=== PATIENT | female | born 1955 | race Caucasian/White ===

== ENCOUNTER 2017-04-01 20:48 | Inpatient (IN) | payer MEDICARE, OTHER ==
[~2017-04-01] VITALS: Ht 165.1 cm; Wt 76.2 kg
--- NOTE | 2017-04-01 23:10 | NUR ---
GPS RN ADMITTING NOTES: ADMITTED A 61 YO FEMALE TO THE GPS UNIT. PATIENT WAS BROUGHT IN VIA GURNEY BY AMBULANCE FROM [facility], WHERE SHE WAS FIRST BROUGHT BY HER DAUGHTER FOR INCREASING AGITATION AND PSYCHOSIS. PER 5150 HOLD, PATIENT HAS BEEN DIAGNOSES WITH SCHIZOPHRENIA, AND THAT SHE HAS BEEN HAVING FIXED DELUSIONS OF AND HAVING CONSTIPATION AND LARGE AMOUNTS OF STOOL AND FOOD COMING OUT OF HER, TO THE POINT WHERE, PER DAUGHTER, SHE WOULD REFUSE TO EAT BECAUSE OF CONSTIPATION. PATIENT IS AOX1, CONFUSED WITH DISORGANIZED THOUGHT AND FLIGHT OF IDEAS. BREATHING EVEN AND UNLABORED. AMBULATORY, STEADY GAIT. APPEARS UNKEMPT. PATIENT ADMITTED UNDER THE CARE OF DR LEONARD (PSYCH) AND DR BENNY LEONE (MEDICAL). BELONGINGS CHECKED, NO CONTRABAND NOTED. SKIN AND BODY ASSESSMENT DONE. SHOWER OFFERED BY CO FOUNDER & CEO. PROVIDED FOR COMFORT AND SAFETY. BED IN LOWEST AND LOCKED POSITION, SIDERAILS UP X3. WILL MONITOR Q 15 MINS FOR BEHAVIOR.
[2017-04-01] MEDS ORDERED: ACETAMINOPHEN 325 MG TABLET PO PRN (23:30)
[2017-04-01] MEDS ORDERED: MAGNESIUM HYDROXIDE 30 ML UDC PO PRN (23:30)
[2017-04-01] MEDS ORDERED: MAG HYDROX/AL HYDROX/SIMETH 30 ML UDC PO PRN (23:30)
[2017-04-01 23:57] VITALS: BP 158/85
[2017-04-02] MEDS ORDERED: HALO5TAB PO (00:19)
[2017-04-02] MEDS ORDERED: DIVA500T2 PO (00:19)
[2017-04-02] MEDS ORDERED: ASPI-605 PO (00:19)
[2017-04-02] MEDS ORDERED: HALO10TA13 PO (00:19)
[2017-04-02] MEDS ORDERED: ALEN70TA3 PO (00:19)
[2017-04-02] MEDS ORDERED: HALO50VI4 IM (00:19)
[2017-04-02] MEDS ORDERED: TRAZ-147 PO (00:19)
[2017-04-02] MEDS ORDERED: TEMAZEPAM 7.5 MG CAPSULE ONE (01:16)
--- NOTE | 2017-04-02 01:20 | NUR ---
RN NOTES: PATIENT KEPT WALKING DOWN THE HALLWAYS, STATING THAT SHE HAS JUST "HAD A BABY", AND INSISTS THAT IT WAS TAKEN AWAY BY THE DOCTORS AND NURSES. PATIENT APPEARS RESTLESS AND AGITATED. REDIRECTED TO ROOM AND PRN TEMAZEPAM PO ADMINISTERED. FOR CLOSE MONITORING.
[2017-04-02] MEDS: TEMAZEPAM 7.5 MG CAPSULE PO PRN (01:21)
[2017-04-02] MEDS ORDERED: Z GUARD REMEDY 2 OZ OINT TP PRN (06:30)
--- NOTE | 2017-04-02 06:37 | NUR ---
RN NOTES: PATIENT CRYING AND YELLING, IN KEVIN CHAIR, APPEARS CONFUSED, SAYING "TAKE ME BACK TO MY ROOM, I WANT TO SEE MY BABY!". TRIED TO CALM PATIENT AND REORIENTED TO REALITY. PATIENT STILL CRYING.
--- NOTE | 2017-04-02 07:02 | NUR ---
RN NOTES: PATIENT LED BACK TO ROOM NOW. APPEARS MORE CALM, BUT STILL ASKING FOR HER "BABY". WILL CONT TO MONITOR.
[2017-04-02] MEDS ORDERED: clonazePAM 0.5 MG TABLET ONE (07:05)
[2017-04-02 07:09] LABS: BILIRUBIN,TOTAL 0.5 mg/dL (0.2-1.0); CREATININE 0.6 mg/dL (0.6-1.3); POTASSIUM 4.2 mmol/L (3.5-5.1); TOTAL PROTEIN, SERUM 7.8 g/dL (6.4-8.2)
[2017-04-02] MEDS: clonazePAM 0.5 MG TABLET PO PRN ×3 (07:10→15:57)
--- NOTE | 2017-04-02 07:13 | NUR ---
RN NOTES: PATIENT'S BEHAVIOR ESCALATED, AND SHE WAS YELLING AT THE TOP OF HER VOICE FOR HER BABY, AND WAS VERY DISRUPTIVE. KLONOPIN 0.5 MG PO GIVEN. PATIENT PLACED IN GERICHAIR, ACCOMPANIED BY DAMIR. WILL CONT TO MONITOR.
[2017-04-02 08:48] VITALS: BP 154/86
[2017-04-02] MEDS ORDERED: ALEN35TA5 PO (14:02)
[2017-04-02 16:00] VITALS: BP 129/65
--- NOTE | 2017-04-02 16:31 | NUR ---
PATIENT HAS BEEN AGITATED ALL SHIFT AND SHE HAS RECEIVED KLONOPIN TWICE WITH L[facility]LE [facility] SHE THINKS SHE HAS A BABY AND THEY WONT GIVE IT TO HER CRYING AND PACING UNIT NEEDING RE DIRECTION TO REALITY. STAFF MADE HER A DOLL OUT OF LINEN AND SHE REC D KLONOPIN 0.5MG AND PLACED IN ROOM TO DE ESCALATE
[2017-04-02 20:31] VITALS: BP 153/90
[2017-04-02] MEDS: TRAZODONE 50 MG TABLET PO PRN (22:08)
[2017-04-02] MEDS: DIVALPROEX SODIUM 500 MG TABLET.DR PO SCH (22:08)
[2017-04-02] MEDS: HALOPERIDOL 5 MG TABLET PO SCH (22:09)
[2017-04-03 08:00] VITALS: BP 106/64
[2017-04-03] MEDS: HALOPERIDOL 5 MG TABLET PO SCH ×2 (09:06→21:19)
[2017-04-03] MEDS: clonazePAM 0.5 MG TABLET PO PRN (15:55)
--- NOTE | 2017-04-03 15:58 | NUR ---
Initial Discharge Note: Patient lives at home with her daughter [id number] [facility] [address] [place] [address] ([phone]). family service caseworker spoke to patient's daughter Christa Sharif ([phone]) who stated that she wanted her mother to return home upon discharge and would pick her up when she is ready. family service caseworker attempted to contact patient's brother Phan Sharif / . However, he was unavailable social services manager left him a voicemail with her contact information. family service caseworker will help form a safe and proper discharge. family service caseworker will provide referrals for smoking cessation.
--- NOTE | 2017-04-03 15:59 | NUR ---
Psychosocial assessment was reviewed and I concur with the information given. No changes are necessary. Ginette Rivas, [facility] [id number] Addendum: 04/03/17 at 1559 by GINETTE RIVAS SW Amended: Links added.
[2017-04-03 16:00] VITALS: BP 142/97
[2017-04-03] MEDS: DIVALPROEX SODIUM 500 MG TABLET.DR PO SCH (21:18)
[2017-04-03 22:31] VITALS: BP 129/75
[2017-04-03] MEDS: TEMAZEPAM 7.5 MG CAPSULE PO PRN (22:54)
[2017-04-04] MEDS: clonazePAM 0.5 MG TABLET PO PRN ×4 (02:54→18:01)
--- NOTE | 2017-04-04 02:55 | NUR ---
KLONOPIN 0.5 MG PO PRN GIVEN FO ANXIETY PER PT. REQUEST
[2017-04-04 08:32] VITALS: BP 140/80
[2017-04-04] MEDS: HALOPERIDOL 5 MG TABLET PO SCH ×2 (08:35→21:05)
--- NOTE | 2017-04-04 08:36 | NUR ---
administered klonopin 0.5 mg po prn for anxiety, paranoia, irritable, yelling, screaming. v/s taken bp-140/80, p-90, continued monitoring.
--- NOTE | 2017-04-04 12:40 | NUR ---
PATIENT VERY ANXIOUS, YELLING, PARANOID, DELUSIONAL, UNKEMPT, AWOL RISK, AGGRESSIVE, RESPOND INTERNAL STIMULI, DISORGANIZED THOUGHTS, JUMPING FROM ONE TOPIC TO ANOTHER. ADMINISTERED KLONOPIN 0.5 MG PO PRN Q 4 HR PRESCRIBED BY . V/S TAKEN BP-142/81, P-92, CONTINUED MONITORING.
[2017-04-04 16:00] VITALS: BP 130/70
[2017-04-04 16:37] VITALS: BP 130/70
--- NOTE | 2017-04-04 18:01 | NUR ---
administered klonopin 0.5 mg po prn for paranoia, delusional, aggressive, yelling, vs take, bp -130/88, p-90, continued monitoring.
[2017-04-04 20:00] VITALS: BP 150/98
[2017-04-04] MEDS: DIVALPROEX SODIUM 500 MG TABLET.DR PO SCH (21:05)
[2017-04-05] MEDS: TEMAZEPAM 7.5 MG CAPSULE PO PRN (01:32)
[2017-04-05] MEDS: clonazePAM 0.5 MG TABLET PO PRN ×3 (02:11→20:10)
[2017-04-05] MEDS: HALOPERIDOL 5 MG TABLET PO SCH ×2 (08:42→21:37)
--- NOTE | 2017-04-05 08:42 | NUR ---
GPS/RN KLONOPIN 0.5MG PO GIVEN FOR ANXIETY
[2017-04-05 16:01] VITALS: BP 124/61
--- NOTE | 2017-04-05 19:30 | NUR ---
GPS RN NOTE, RECEIVED PATIENT AWAKE AND IN BED, NO S/S OR COMPLAINTS OF PAIN AT THIS TIME. PATIENT IS DISPLAYING NO S/S OF APPARENT DISTRESS AT THIS TIME. PATIENT BREATHING IS UNLABORED WITH EQUAL RISE AND FALL OF THE CHEST. PATIENT IS ALERT AND ORIENTED X 1-2 ON ROOM AIR WITH A SPO2 98%. PATIENT SELECTIVE WITH MEDICATION, DEPRESSED, UNCOOPERATIVE, , CONFUSED AT TIMES, WONDERS, YELLING THAT HER BABY IS DOWN THE TOILET AND NEEDS REORIENTATION. PATIENT DENIES SUICIDE AND HOMICIDAL IDEATIONS AT THIS TIME. PATIENT ASSISTED WITH TURNING AND REPOSITIONING Q2HR AND PRN FOR COMFORT AND CIRCULATION. PATIENT HAS NO NEEDS AT THIS TIME. PATIENT EDUCATED ON THE USE OF THE CALL TAI. PATIENT BED SIDE RAILS UP X2 FOR SAFETY, BED IS LOCKED AND LOW WILL CONTINUE TO MONITOR AND MAINTAIN SAFETY.
[2017-04-05 20:00] VITALS: BP 145/75
--- NOTE | 2017-04-05 20:10 | NUR ---
GPS RN NOTE, PATIENT IS ANXIOUS EVIDENCED BY HE WONDER YELLING, " YOU KILLED MY BABY BY FLUSHING IT DOWN THE TOILET ". PATIENT VITAL SIGNS ARE STABLE. GAVE KLONOPIN 0.5MG PO Q4HR PRN ORDERED. WILL REASSESS FOR ANXIETY AND I WILL CONTINUE TO MONITOR THIS PATIENT.
--- NOTE | 2017-04-05 20:52 | NUR ---
GPS RN NOTE, PATIENT YELLING, " YOU KILLED MY BABY BY FLUSHING DOWN THE TOILET SO I'M GOING TO KILL YOU ". PATIENT IS POSING BEHAVIOR THAT IS DANGEROUS TO OTHERS, DELUSIONAL, AGITATED, AGGRESSIVE, AND IS THREATENING PHYSICAL TO OTHERS. OFFERED ORAL MEDICATION, TRIED TO REDIRECT THIS PATIENT, AND I TRIED OFFER FOOD AND WATER TO THIS PATIENT WITH NO POSITIVE EFFECT. PAGED DR LEONARD AND INFORMED HIM OF MY FINDINGS. DR LEONARD ORDERED ZYPREXA 5MG IM ONCE, AND ATIVAN 1MG IM ONCE. ALL ORDERS NOTED AND CARRIED OUT WILL CONTINUE TO MONITOR THIS PATIENT.
[2017-04-05] MEDS ORDERED: LORAZEPAM INJ 2 MG/ML VIAL IM ONE (21:00)
[2017-04-05] MEDS ORDERED: OLANZAPINE 10 MG VIAL IM ONE (21:00)
[2017-04-05] MEDS: DIVALPROEX SODIUM 500 MG TABLET.DR PO SCH (21:36)
--- NOTE | 2017-04-05 21:36 | NUR ---
GPS RN NOTE, PATIENT IS TO AND SEDATED TO TAKE DEPAKOTE 1000MG PO HS AND HALDOL 10MG PO HS ORDERED. DR LEONARD AWARE. WILL CONTINUE TO MONITOR THIS PATIENT.
[2017-04-06 08:00] VITALS: BP 115/80
[2017-04-06] MEDS: HALOPERIDOL 5 MG TABLET PO SCH ×2 (08:58→22:14)
[2017-04-06 15:47] VITALS: BP 121/71
--- NOTE | 2017-04-06 19:30 | NUR ---
GPS/RESIDENTIAL LIVING ASSISTANT; RECEIVED PT WALKING IN THE HALLWAY CARRYING HER DOLL. PT QUIET BUT NO AGITATION NOTED. WILL CONTINUE TO MONITOR.
[2017-04-06 20:00] VITALS: BP 119/90
--- NOTE | 2017-04-06 22:00 | NUR ---
GPS/PLANTING MACHINE CREWMAN; PT TOOK ONLY 1 TAB. OF DEPAKOTE 500 MG INSTEAD OF 2 TO MAKE IT 1000MG. SHE REFUSED THE OTHER 500 MG.
[2017-04-06] MEDS: DIVALPROEX SODIUM 500 MG TABLET.DR PO SCH (22:13)
--- NOTE | 2017-04-07 07:00 | NUR ---
SLEPT FOR SHORT HOURS. CONFUSED. WILL ENDORSE TO THE DAY SHIFT NURSE.
[2017-04-07 08:00] VITALS: BP 149/98
[2017-04-07] MEDS: HALOPERIDOL 5 MG TABLET PO SCH ×2 (08:31→22:01)
[2017-04-07] MEDS: clonazePAM 0.5 MG TABLET PO PRN (11:19)
--- NOTE | 2017-04-07 11:21 | NUR ---
PURCHASING ADMINISTRATOR-NOTES NOTED PATIENT CRYING,DELUSIONAL AND PACING IN AND OUT HER ROOM. REDIRECTED AND OFFERED KLONOPIN AND AGREES. KLONOPIN 0.5MG P.O GIVEN PRN ORDER. WILL CONT. MONITORING FOR SAFETY AND BEHAVIOR.
[2017-04-07 16:00] VITALS: BP 124/79
[2017-04-07 20:31] VITALS: BP 149/90
[2017-04-07] MEDS: DIVALPROEX SODIUM 500 MG TABLET.DR PO SCH (22:00)
[2017-04-07] MEDS: TRAZODONE 50 MG TABLET PO PRN (23:42)
[2017-04-08] MEDS: clonazePAM 0.5 MG TABLET PO PRN (06:33)
--- NOTE | 2017-04-08 06:33 | NUR ---
GPS RN: PATIENT IN THE HALLWAY, TALKING TO SELF, DELUSIONAL, STATES "I AM JARRETT" GO AWAY!". PATIENT THEN REDIRECTED BACK TO THE ROOM. KLONOPIN 0.5 MG GIVEN PRN. WILL MONITOR PATIENT'S MOOD AND BEHAVIOR.
[2017-04-08 08:00] VITALS: BP 126/58
[2017-04-08] MEDS: HALOPERIDOL 5 MG TABLET PO SCH ×2 (08:20→21:51)
[2017-04-08 16:00] VITALS: BP 133/74
[2017-04-08 20:59] VITALS: BP 137/81
[2017-04-08] MEDS ORDERED: DIVALPROEX SODIUM 500 MG TABLET.DR PO SCH (22:00)
[2017-04-09 08:00] VITALS: BP 114/75
[2017-04-09] MEDS: HALOPERIDOL 5 MG TABLET PO SCH ×2 (08:25→21:05)
[2017-04-09 16:00] VITALS: BP 109/53
[2017-04-09 20:00] VITALS: BP_SYST 103; BP_SYST 138; BP_DIAS 79
[2017-04-09] MEDS: DIVALPROEX SODIUM 250 MG TABLET.DR PO SCH (21:05)
[2017-04-10 08:00] VITALS: BP 106/72
[2017-04-10] MEDS: HALOPERIDOL 5 MG TABLET PO SCH ×2 (08:03→21:29)
[2017-04-10 16:17] VITALS: BP 133/90
[2017-04-10 20:00] VITALS: BP 134/65
[2017-04-10] MEDS: DIVALPROEX SODIUM 250 MG TABLET.DR PO SCH (21:29)
[2017-04-10] MEDS: TRAZODONE 50 MG TABLET PO PRN (21:29)
[2017-04-11] MEDS ORDERED: ALENDRONATE 70 MG TABLET PO SCH (06:30)
[2017-04-11 08:44] VITALS: BP 109/59
[2017-04-11] MEDS: HALOPERIDOL 5 MG TABLET PO SCH ×2 (08:50→21:47)
[2017-04-11 16:20] VITALS: BP 115/61
[2017-04-11 20:00] VITALS: BP 113/65
--- NOTE | 2017-04-11 20:10 | NUR ---
INITIAL RN NOTES: PT IN THE DINING AREA, A/O X1-2, PT CARRYING A PINK TOY STATED ITS HER BABY, PT HAS ON AND OFF PERIODS OF ANXIOUSNESS, IRRITABILITY, NOTED TO HAVE IMPULSIVE BEHAVIOR WITH LIMITED EYE CONTACT, PT ALWAYS ASKED FOR FOOD STATED SHE'S HUNGRY. PT IS AMBULATORY, COMPLIANT WITH MEDICATION. WILL CONTINUE TO MONITOR [id number] FOR SAFETY AND ANY CHANGES IN BEHAVIOR.
[2017-04-11] MEDS: DIVALPROEX SODIUM 250 MG TABLET.DR PO SCH (21:46)
--- NOTE | 2017-04-12 | NUR ---
RN NOTES: OFFERED TO PT HER SLEEPING PILL, BUT PT REFUSED, SHE STATED SHE WILL SLEEP LATER, EDUCATE PT REGARDING RISK AND BENEFIT
--- NOTE | 2017-04-12 01:00 | NUR ---
RN NOTES: PT STILL AWAKE, OFFERED RESTORIL, SLEEPING PILL, BUT PT REFUSED, STATED SHE DOESN'T WANT IT AT THIS TIME, EXPLAINED TO PT REGARDING RISK AND BENEFITS,
--- NOTE | 2017-04-12 03:00 | NUR ---
RN NOTES: PT SLEEPING AT THIS TIME WHILE CUDDLING HER PINK STUFF ANIMAL, NOT IN APPARENT DISTRESS, WILL CONTINUE TO MONITOR
--- NOTE | 2017-04-12 06:31 | NUR ---
RN CLOSING NOTES: PT IN BED, AWAKE, REMAINS A/O X2-3, NO SOB NOTED, COOPERATIVE AND NEEDS FREQUENT REDIRECTION. PT STILL CUDDLING HER PINK STUFF ANIMAL, NO UNTOWARD EVENT HAPPENED THROUGHOUT THE SHIFT. PT DENIES ANY PLAN OF HURTING HERSELF. VS REMAINS STABLE, NEEDS ATTENDED. WILL ENDORSE TO DAY RN FOR WILEY.
[2017-04-12 08:00] VITALS: BP 108/61
[2017-04-12] MEDS: HALOPERIDOL 5 MG TABLET PO SCH (08:47)
--- NOTE | 2017-04-12 13:15 | NUR ---
GPS/RN PT IS ALERT, AMBULATORY, PARANOID. MEDS COMPLIANT. NO SI OR HI NOTED/REPORTED. REFUSED PICTURES.
--- NOTE | 2017-04-12 15:00 | NUR ---
GPS/RN PT LEFT HOME WITH HER DAUGHTER STACI. PRESCRIPTIONS, EXIT CARE PROVIDED NO SI OR HI AT THE TIME OF D/C.
--- NOTE | 2017-04-12 16:30 | NUR ---
Discharge Note: Patient was discharged back home [address] [facility] [address] [place] [address] ([phone]). Patient's daughter Christa Sharif ([phone]) was notified and was agreeable with the discharge plan. Patient's daughter Christa Sharif picked up the patient via private vehicle. Patient's mood and affect were appropriate upon discharge. Patient denied suicidal and homicidal ideations. Patient's daughter agreed to have patient follow-up with her psychiatrist Dr. Elmore . office worker referred patient for smoking cessation at the [facility] ([phone]) from 5:30-7pm [address] [place] [address]. Facilitated info to IDT team who are in agreement with discharge arrangement. The multidisciplinary exitcare form was done, printed, signed, and given to the patient.
--- NOTE | 2017-04-16 13:43 | NUR ---
drop worker attempted to contact Celeste from [facility] ([phone]) However, she was unavailable. drop worker left a message with her contact information.
== END 2017-04-12 15:00 | disposition home or self-care (01) | DRG 885 ==
LOC: GPS 22:52
PROVIDERS: ADMIT Psychiatry & Neurology Psychiatry
DX: F20.0 Paranoid schizophrenia (principal); F29 Unspecified psychosis not due to a substance or known physiological condition; Z73.6 Limitation of activities due to disability; M81.0 Age-related osteoporosis without current pathological fracture
CPT/HCPCS: 36415; 80053-TC; 80061-TC; 80164-TC; 87081-TC; J2060; J3490

== ENCOUNTER 2018-04-09 22:18 | Inpatient (IN) | payer MEDICARE, OTHER ==
[~2018-04-09] VITALS: Ht 165.1 cm; Wt 73.0 kg
[~2018-04-09 22:18] MED LIST: ALEN35TA5 PO
[2018-04-10] MEDS ORDERED: TRAZ-214 (02:13)
[2018-04-10] MEDS ORDERED: DIVA500T54 PO (02:15)
[2018-04-10] MEDS ORDERED: HALO5TAB PO (02:18)
[2018-04-10] MEDS ORDERED: HALO100A2 IM (02:21)
[2018-04-10] MEDS ORDERED: ASPI-605 PO (02:21)
[2018-04-10] MEDS ORDERED: TRAZ-214 PO (02:22)
[2018-04-10] MEDS ORDERED: RANI150T8 PO (02:23)
[2018-04-10] MEDS ORDERED: MULT1TAB73 PO (02:24)
[2018-04-10] MEDS ORDERED: CALC-20 PO (02:26)
[2018-04-10] MEDS ORDERED: PSYL0.5245 PO (02:27)
[2018-04-10] MEDS ORDERED: ACETAMINOPHEN 325 MG TABLET PO PRN (03:00)
[2018-04-10] MEDS ORDERED: MAGNESIUM HYDROXIDE 30 ML UDC PO PRN (03:00)
[2018-04-10] MEDS ORDERED: MAG HYDROX/AL HYDROX/SIMETH 30 ML UDC PO PRN (03:00)
[2018-04-10 03:05] VITALS: BP 128/78
--- NOTE | 2018-04-10 03:19 | NUR ---
ADMISSION NOTES ADMITTED THIS 62Y/O FEMALE PATIENT ADMIT FROM [facility]/, PT IS ON 5150 HOLD FOR GD , PER HOLD PT. IS HALLUCINATING THAT SHE IS AND WANTING TO REMOVE THE BABY FROM HER STOMACH ,PARANOID, UPON FACE TO FACE ASSESSMENT PATIENT IS A&O X1 DISHELVED , PARANOID, COOPERTIVE ,DENIES ANY SI HI AT THIS TIME, PT. IS POOR HISTORIAN, POOR INSIGHT ,POOR JUDGEMENT , V/S WNL, NO ACUTE DISTRESS NOTED, PT. REFUSED TO SIGN ALL ADMISSION PAPERS , SKIN ASSESSMENT , MD AWARE AND NOTIFIED OF THE ADMISSION, ENCOURAGED PT. VERBALIZED ANY FEELING CONCERN TO STAFF, ORIENT TO UNIT POLICY, WILL CONTINUE TO MONITOR FOR Q15 SAFETY AND BEHAVIOR.
--- NOTE | 2018-04-10 05:54 | NUR ---
RN GPS NOTES PT. REFUSED TO TAKE SHOWER AT THIS TIME , PER PT. MAY BE LATER IN DURING DAY.
[2018-04-10 07:21] LABS: ALBUMIN 3.6 g/dL (3.4-5.0); BILIRUBIN,TOTAL 0.6 mg/dL (0.2-1.0); CREATININE 0.6 mg/dL (0.6-1.3); POTASSIUM 3.7 mmol/L (3.5-5.1); TOTAL PROTEIN, SERUM 7.3 g/dL (6.4-8.2)
[2018-04-10 08:00] VITALS: BP 136/95
[2018-04-10] MEDS: BENZTROPINE MESYLATE (1 MG) 1 MG TABLET PO SCH ×3 (08:30→16:28)
--- NOTE | 2018-04-10 09:56 | NUR ---
DR. WEINER IN THE UNIT AND TOLD TO RECONCILE THE MEDS AND SAID YES.
[2018-04-10] MEDS: risperiDONE 1 MG TABLET PO SCH (12:29)
[2018-04-10] MEDS: LORAZEPAM 0.5 MG TABLET PO PRN (15:02)
--- NOTE | 2018-04-10 15:33 | NUR ---
Initial Discharge Plan: Patient came from [facility] [[address] [place] [address] ]. grey roll worker will follow up with the facility as well as the MD and the family members regarding an appropriate discharge. SW will form a safe and proper discharge.
[2018-04-10 16:26] VITALS: BP 156/89
[2018-04-10 20:00] VITALS: BP 150/85
[2018-04-10] MEDS: TEMAZEPAM 7.5 MG CAPSULE PO PRN (21:53)
[2018-04-10] MEDS ORDERED: risperiDONE 1 MG TABLET PO SCH ×2 (22:00)
[2018-04-11] MEDS: LORAZEPAM 0.5 MG TABLET PO PRN ×2 (01:19→09:03)
[2018-04-11 07:19] LABS: CHOLESTEROL 174 mg/dL (<200); HDL CHOLESTEROL 61 mg/dL (40-60); LDL 101 mg/dL (0-99); TRIGLYCERIDES 68 mg/dL (30-150)
[2018-04-11] MEDS ORDERED: Z GUARD REMEDY 2 OZ OINT TP PRN (07:30)
--- NOTE | 2018-04-11 07:31 | NUR ---
WOUND CARE CONSULT WOUND CARE RECEIVED CONSULT FOR BUTTOCKS AREA REDNESS. WOUND CARE WILL DEFER CONSULT AND TREATMENT PLANS TO SURGICAL TEAM WHO ARE CURRENTLY FOLLOWING. PATIENT WITH RASHAD AT 22.
[2018-04-11 08:00] VITALS: BP 142/74
[2018-04-11] MEDS: BENZTROPINE MESYLATE (1 MG) 1 MG TABLET PO SCH ×3 (08:30→16:33)
[2018-04-11] MEDS: risperiDONE 1 MG TABLET PO SCH ×2 (08:30→12:40)
[2018-04-11] MEDS: CALCIUM CARB 600MG /VIT D 1 EACH TABLET PO SCH (08:31)
[2018-04-11] MEDS: FAMOTIDINE (20 MG) 20 MG TABLET PO SCH (08:31)
[2018-04-11] MEDS: ASPIRIN EC 81 MG TABLET.DR PO SCH (08:31)
[2018-04-11] MEDS: MULTIVITAMINS,THERAGRAN 1 UDTAB TABLET PO SCH (08:32)
[2018-04-11] MEDS: Z GUARD REMEDY 2 OZ OINT TP SCH (09:03)
[2018-04-11 16:00] VITALS: BP 152/81
[2018-04-11 16:27] VITALS: BP 152/81
--- NOTE | 2018-04-11 17:24 | NUR ---
Christa Sharif called and gave the lists of medications that pt. is talking and Brennon Tomas made aware gave orders. Addendum: 04/11/18 at 1734 by BAILEE VYAS RN =HALDOL INJECTION 50 MG ONCE A MONTH AND NEXT DUE April =HALDOL 10 MG PO 2X A DAY =TRAZODONE 100 MG PO AT BEDTIME =DEPAKOTE 750 MG PO IN THE EVENING
[2018-04-11] MEDS: HALOPERIDOL 5 MG TABLET PO SCH (18:04)
[2018-04-11 20:26] VITALS: BP 159/87
[2018-04-11] MEDS ORDERED: DIVALPROEX SODIUM 250 MG TABLET.DR PO SCH (21:00)
[2018-04-11] MEDS: TEMAZEPAM 7.5 MG CAPSULE PO PRN (22:18)
[2018-04-11] MEDS: DIVALPROEX SODIUM 250 MG TABLET.DR PO SCH (22:18)
[2018-04-11] MEDS: TRAZODONE 50 MG TABLET PO SCH (22:18)
[2018-04-12] MEDS: LORAZEPAM 0.5 MG TABLET PO PRN ×2 (01:17→21:43)
[2018-04-12 08:00] VITALS: BP 143/96
[2018-04-12] MEDS: MULTIVITAMINS,THERAGRAN 1 UDTAB TABLET PO SCH (08:26)
[2018-04-12] MEDS: CALCIUM CARB 600MG /VIT D 1 EACH TABLET PO SCH (08:26)
[2018-04-12] MEDS: ASPIRIN EC 81 MG TABLET.DR PO SCH (08:26)
[2018-04-12] MEDS: HALOPERIDOL 5 MG TABLET PO SCH ×2 (08:27→17:17)
[2018-04-12] MEDS: FAMOTIDINE (20 MG) 20 MG TABLET PO SCH (08:27)
[2018-04-12] MEDS: Z GUARD REMEDY 2 OZ OINT TP SCH (09:02)
[2018-04-12 16:00] VITALS: BP 149/93
[2018-04-12 20:00] VITALS: BP 159/83
[2018-04-12] MEDS: TRAZODONE 50 MG TABLET PO SCH (21:42)
[2018-04-12] MEDS: DIVALPROEX SODIUM 250 MG TABLET.DR PO SCH (21:42)
[2018-04-13 08:07] VITALS: BP 146/99
[2018-04-13] MEDS: HALOPERIDOL 5 MG TABLET PO SCH ×2 (08:30→16:24)
[2018-04-13] MEDS: FAMOTIDINE (20 MG) 20 MG TABLET PO SCH (08:30)
[2018-04-13] MEDS: ASPIRIN EC 81 MG TABLET.DR PO SCH (08:30)
[2018-04-13] MEDS: CALCIUM CARB 600MG /VIT D 1 EACH TABLET PO SCH (08:30)
[2018-04-13] MEDS: MULTIVITAMINS,THERAGRAN 1 UDTAB TABLET PO SCH (08:32)
[2018-04-13] MEDS: LORAZEPAM 0.5 MG TABLET PO PRN ×2 (08:32→20:59)
--- NOTE | 2018-04-13 08:32 | NUR ---
[id number]: GAVE ATIVAN 0.5 MG PO DUE TO SEVERE ANXIETY UPON PT REQUEST AND WILL CONTINUE TO MONITOR FOR EFFECTIVENESS OF MEDICATION.
[2018-04-13] MEDS: Z GUARD REMEDY 2 OZ OINT TP SCH (08:35)
[2018-04-13 15:57] VITALS: BP 143/71
[2018-04-13 20:05] VITALS: BP 134/80
[2018-04-13] MEDS: TRAZODONE 50 MG TABLET PO SCH (21:00)
[2018-04-13] MEDS: DIVALPROEX SODIUM 250 MG TABLET.DR PO SCH (21:00)
[2018-04-14 08:00] VITALS: BP 137/79
[2018-04-14] MEDS: Z GUARD REMEDY 2 OZ OINT TP SCH (09:08)
[2018-04-14] MEDS: MULTIVITAMINS,THERAGRAN 1 UDTAB TABLET PO SCH (09:10)
[2018-04-14] MEDS: FAMOTIDINE (20 MG) 20 MG TABLET PO SCH (09:10)
[2018-04-14] MEDS: CALCIUM CARB 600MG /VIT D 1 EACH TABLET PO SCH (09:10)
[2018-04-14] MEDS: HALOPERIDOL 5 MG TABLET PO SCH ×2 (09:10→16:13)
[2018-04-14] MEDS: ASPIRIN EC 81 MG TABLET.DR PO SCH (09:10)
[2018-04-14] MEDS: LORAZEPAM 0.5 MG TABLET PO PRN (09:12)
--- NOTE | 2018-04-14 09:12 | NUR ---
[id number]: GAVE ATIVAN 0.5 MG PO DUE TO SEVERE ANXIETY UPON PT REQUEST AND WILL CONTINUE TO MONITOR FOR EFFECTIVENESS OF MEDICATION
[2018-04-14 16:00] VITALS: BP 136/90
--- NOTE | 2018-04-14 19:30 | NUR ---
GPS RN NOTE, RECEIVED PATIENT AWAKE AND IN BED, NO S/S OR COMPLAINTS OF PAIN AT THIS TIME. PATIENT DISPLAYING NO S/S OF APPARENT DISTRESS AT THIS TIME. PATIENT BREATHING IS UNLABORED WITH EQUAL RISE AND FALL OF THE CHEST. PATIENT ALERT AND ORIENTED X 1 WITH A SPO2 94%. PATIENT IS MED COMPLIANT, DISORGANIZED, HYPERVERBAL, UNCOOPERATIVE AT TIMES, CONFUSED, VERBALLY ABUSIVE AT TIMES, AND NEEDS REORIENTATION. PATIENT DENIES SUICIDE IDEATIONS AND HOMICIDAL IDEATIONS AT THIS TIME. PATIENT ASSISTED WITH TURNING AND REPOSITIONING Q2HR AND PRN FOR COMFORT AND CIRCULATION. PATIENT HAS NO NEEDS AT THIS TIME. PATIENT EDUCATED ON THE USE OF THE CALL TAI. PATIENT BED SIDE RAILS UP X2 FOR SAFETY, BED IS LOCKED AND LOW WILL CONTINUE TO MONITOR AND MAINTAIN AND MAINTAIN SAFETY.
[2018-04-14 19:57] VITALS: BP 148/64
[2018-04-14] MEDS: TRAZODONE 50 MG TABLET PO SCH (22:37)
[2018-04-14] MEDS: ATORVASTATIN 10 MG TABLET PO SCH (22:37)
[2018-04-14] MEDS: DIVALPROEX SODIUM 250 MG TABLET.DR PO SCH (22:37)
[2018-04-15 08:00] VITALS: BP 126/56
[2018-04-15] MEDS: CALCIUM CARB 600MG /VIT D 1 EACH TABLET PO SCH (08:31)
[2018-04-15] MEDS: HALOPERIDOL 5 MG TABLET PO SCH ×2 (08:31→16:12)
[2018-04-15] MEDS: MULTIVITAMINS,THERAGRAN 1 UDTAB TABLET PO SCH (08:31)
[2018-04-15] MEDS: ASPIRIN EC 81 MG TABLET.DR PO SCH (08:31)
[2018-04-15] MEDS: FAMOTIDINE (20 MG) 20 MG TABLET PO SCH (08:31)
[2018-04-15] MEDS: Z GUARD REMEDY 2 OZ OINT TP SCH (08:36)
[2018-04-15 16:00] VITALS: BP 136/64
[2018-04-15] MEDS: LORAZEPAM 0.5 MG TABLET PO PRN (19:26)
[2018-04-15 20:22] VITALS: BP 150/80
[2018-04-15] MEDS: ATORVASTATIN 10 MG TABLET PO SCH (21:04)
[2018-04-15] MEDS: DIVALPROEX SODIUM 250 MG TABLET.DR PO SCH (21:04)
[2018-04-15] MEDS: TRAZODONE 50 MG TABLET PO SCH (21:06)
[2018-04-15] MEDS: TEMAZEPAM 7.5 MG CAPSULE PO PRN (22:24)
[2018-04-15 23:00] VITALS: BP 134/80
[2018-04-16 08:00] VITALS: BP 122/58
[2018-04-16] MEDS: MULTIVITAMINS,THERAGRAN 1 UDTAB TABLET PO SCH (08:23)
[2018-04-16] MEDS: ASPIRIN EC 81 MG TABLET.DR PO SCH (08:23)
[2018-04-16] MEDS: HALOPERIDOL 5 MG TABLET PO SCH ×2 (08:24→16:02)
[2018-04-16] MEDS: FAMOTIDINE (20 MG) 20 MG TABLET PO SCH (08:24)
[2018-04-16] MEDS: CALCIUM CARB 600MG /VIT D 1 EACH TABLET PO SCH (08:24)
[2018-04-16] MEDS: Z GUARD REMEDY 2 OZ OINT TP SCH (08:26)
--- NOTE | 2018-04-16 09:30 | NUR ---
SW spoke to the pt's daughter, Christa ([phone]) and discussed the discharge plan. SW stated that the pt will be discharged on Saturday and because she is going home, the SW asked the daughter to pick her up. Christa stated that she would be able to pick her up from 3-4pm this Saturday.
[2018-04-16] MEDS: LORAZEPAM 0.5 MG TABLET PO PRN (11:40)
--- NOTE | 2018-04-16 11:40 | NUR ---
GPS/RN-NOTES PATIENT CRYING AND YELLING PACING IN THE HALLWAY. REDIRECTED AND ATIVAN 0.5MG P.O GIVEN PRN OR VINCE. WILL CONT. MONITORING FOR SAFETY AND BEHAVIOR.
--- NOTE | 2018-04-16 12:45 | NUR ---
GPS/RN-NOTES PATIENT IN THE DAY ROOM CALM AND COOPERATIVE.NO ACUTE DISTRESS NOTED.
[2018-04-16 15:59] VITALS: BP 138/71
--- NOTE | 2018-04-16 17:28 | NUR ---
GPS/RN-NOTES PATIENT IN THE DAY ROOM,HYPERVERBAL WITH EPISODE OF TALKING AND LAUGHING TO SELF. NEEDS FREQUENT REDIRECTIONS. ENDORSED TO CHARGE NURSE FOR CONTINUITY OF CARE.
--- NOTE | 2018-04-16 19:45 | NUR ---
RN NOTES GPS RN NOTE: RECEIVED PATIENT AWAKE WALKING IN THE HALLWAY IN GPS UNIT. NO S/S OR COMPLAINTS OF PAIN AT THIS TIME. PATIENT DISPLAYING NO S/S OF APPARENT DISTRESS AT THIS TIME. PATIENT IS CONFUSED AND ORIENTED X 1. PATIENT DENIES SUICIDE IDEATIONS AND HOMICIDAL IDEATIONS AT THIS TIME. WILL CONTINUE TO MONITOR AND MAINTAIN AND MAINTAIN SAFETY.
[2018-04-16 20:32] VITALS: BP 132/46
[2018-04-16] MEDS: DIVALPROEX SODIUM 250 MG TABLET.DR PO SCH (21:11)
[2018-04-16] MEDS: TRAZODONE 50 MG TABLET PO SCH (21:12)
[2018-04-16] MEDS: ATORVASTATIN 10 MG TABLET PO SCH (21:12)
[2018-04-17] MEDS: MULTIVITAMINS,THERAGRAN 1 UDTAB TABLET PO SCH (08:12)
[2018-04-17] MEDS: HALOPERIDOL 5 MG TABLET PO SCH ×2 (08:12→17:53)
[2018-04-17] MEDS: ASPIRIN EC 81 MG TABLET.DR PO SCH (08:12)
[2018-04-17] MEDS: FAMOTIDINE (20 MG) 20 MG TABLET PO SCH (08:12)
[2018-04-17] MEDS: CALCIUM CARB 600MG /VIT D 1 EACH TABLET PO SCH (08:12)
[2018-04-17] MEDS: Z GUARD REMEDY 2 OZ OINT TP SCH (08:14)
[2018-04-17 08:36] VITALS: BP 130/66
[2018-04-17] MEDS: LORAZEPAM 0.5 MG TABLET PO PRN (10:45)
--- NOTE | 2018-04-17 10:47 | NUR ---
GPS/RN-NOTES NOTED PATIENT WITH SUDDEN SCREAMING AND YELLING PACING IN THE HALLWAY. REDIRECTED AND ATIVAN 0.5MG P.O GIVEN PRN OR VINCE. WILL CONT. MONITORING FOR SAFETY AND BEHAVIOR.
--- NOTE | 2018-04-17 14:04 | NUR ---
SW spoke to the pt's daughter, Christa ([phone]), and confirmed that the pt will be picked up tomorrow around 3-4pm. Daughter stated that she does not think that her mom is ready to be discharged and asked that the SW confirm it with the psychiatrist and call her back to reconfirm the discharge.
[2018-04-17 16:00] VITALS: BP 120/60
--- NOTE | 2018-04-17 20:00 | NUR ---
GPS RN NOTE: PATIENT PACES IN HALLWAY AND PEERS INTO ROOMS AND IN DAY ROOM WATCHING TV. APPROACHES STAFF AND RAMBLES NONSENSICAL BUT LESS THAN RECENTLY AND CAN BE REDIRECTED. IN ACTIVITY ROOM OR APPROACHING NURSING STATION WITH NONSENSICAL COMMENT,DELUSIONAL. NO ACUTE DISTRESS NOTED. NO SOB, NO COMPLAIN OF PAIN/DISCOMFORT, NO AGITATION AT THIS TIME, WILL CONTINUE TO MONITOR FOR SAFETY AND BEHAVIOR [id number].
[2018-04-17 20:37] VITALS: BP 128/53
[2018-04-17] MEDS: DIVALPROEX SODIUM 250 MG TABLET.DR PO SCH (21:12)
[2018-04-17] MEDS: ATORVASTATIN 10 MG TABLET PO SCH (21:12)
[2018-04-17] MEDS: TRAZODONE 50 MG TABLET PO SCH (21:12)
[2018-04-18] MEDS: CALCIUM CARB 600MG /VIT D 1 EACH TABLET PO SCH (08:46)
[2018-04-18] MEDS: FAMOTIDINE (20 MG) 20 MG TABLET PO SCH (08:46)
[2018-04-18] MEDS: ASPIRIN EC 81 MG TABLET.DR PO SCH (08:46)
[2018-04-18] MEDS: MULTIVITAMINS,THERAGRAN 1 UDTAB TABLET PO SCH (08:46)
[2018-04-18] MEDS: HALOPERIDOL 5 MG TABLET PO SCH ×2 (08:47→16:46)
[2018-04-18] MEDS: Z GUARD REMEDY 2 OZ OINT TP SCH (08:48)
--- NOTE | 2018-04-18 09:15 | NUR ---
MONICO called the pt's daughter, Christa ([phone]), to receive information about her pharmacy so that the nurses could fax over a script.
--- NOTE | 2018-04-18 09:23 | NUR ---
DR. GUPTA GAVE AN ORDER TO D/C HOLD AND D/C HOME AND TO FOLLOW UP WITH PSYCH AND MEDICAL DOCTORS. DR. WEINER MADE AWARE OF THE DISCHARGE AND RECONCILED MEDS WITH PRESCRIPTIONS.
--- NOTE | 2018-04-18 10:01 | NUR ---
Prescriptions faxed to [facility] at [phone] and the tel # [phone]. Spoke to Russel the pharmacist and they received the prescriptions.
--- NOTE | 2018-04-18 11:11 | NUR ---
MONICO faxed the pt's psychiatrist, Dr. Monreal ([phone]), forms for her discharge.
--- NOTE | 2018-04-18 14:23 | NUR ---
Discharge Note: Pt discharged and went back home with her daughter, Christa Sharif ([phone]), to [address] [place] [address] ([phone]). Pt denied suicidal/homicidal ideations and denied visual/auditory hallucinations. Pts mood and affect was calm and cooperative at discharge. Pt appeared to be somewhat disheveled and her thought processes continued to be incoherent. Pt was agreeable to this placement and pts daughter also agreed to this discharge plan. For smoking cessation, patient will be referred to the [employer] or [employer] [id number]. Patient was also referred to the Nicotine Anonymous meetings on [address] [facility] and [address] [facility]. Pt will be under the medical care of Dr. López [[facility]: [facility], [address] [place] [address]; ] and her psychiatrist will be Dr. Monreal [[facility]: [address] [place] [address]; ].
[2018-04-18 15:58] VITALS: BP 138/57
--- NOTE | 2018-04-18 18:32 | NUR ---
GPS/RN PT DISCHARGED HOME WITH her daughter Christa Sharif VIA PRIVATE TRANSPORTATION. PRESCRIPTIONS AND EXIT CARE GIVEN AND UNDERSTOOD, PICTURES TAKEN ON D/C ID BAND REMOVED. PT REFUSED TO SIGN D/C PAPERWORK. NO SI OR HI AT THE TIME OF DISCHARGE. PT IS AMBULATORY ,VSS NO ACUTE DISTRESS, NO C/ PAIN REPORTED AT THIS TIME
[2018-04-25] MEDS ORDERED: HALOPERIDOL DECANOATE IM 100 MG/ML AMPUL IM ONE ×2 (09:00)
== END 2018-04-18 18:30 | disposition home or self-care (01) | DRG 885 ==
LOC: GPS 04-10 01:19
PROVIDERS: ADMIT Psychiatry & Neurology Psychiatry; ATTEND Hospitalist
DX: F29 Unspecified psychosis not due to a substance or known physiological condition (principal); E78.5 Hyperlipidemia, unspecified; F41.9 Anxiety disorder, unspecified; F32.9 Major depressive disorder, single episode, unspecified; K21.9 Gastro-esophageal reflux disease without esophagitis; M81.0 Age-related osteoporosis without current pathological fracture; Z73.6 Limitation of activities due to disability; F25.0 Schizoaffective disorder, bipolar type; L98.8 Other specified disorders of the skin and subcutaneous tissue
CPT/HCPCS: 36415; 80053-TC; 80061-TC; 80164-TC; 87081-TC; A4606; Z7610